=== PATIENT | female | born 1985 | race Caucasian/White ===

== ENCOUNTER 2023-07-12 08:32 | Emergency (ER) | payer MEDICAID ==
[~2023-07-12] VITALS: Ht 167.6 cm; Wt 82.0 kg
[2023-07-12 09:28] LABS: BASOPHILS % 0.5 % (0.0-2.0); EOSINOPHILS % 0.2 % (0.0-5.0); HEMATOCRIT. 33.8 % (36.0-48.0); HEMOGLOBIN. 11.4 g/dL (12.0-16.0); LYMPHOCYTES % 25.9 % (20.0-50.0); MEAN CORPUSCULAR HEMOGLOBIN 30.7 pg (28.0-32.0); MEAN CORPUSCULAR HGB CONC 33.8 g/dL (31.0-37.0); MEAN CORPUSCULAR VOLUME 90.8 fL (81.0-99.0); MEAN PLATELET VOLUME 9.4 fl (7.4-10.4); MONOCYTES % 9.7 % (2.0-8.0); NEUTROPHILS % 63.7 % (40.0-76.0); PLATELET 239 x1000/uL (130-400); RED BLOOD CELL COUNT 3.73 mill/uL (4.2-5.4); WHITE BLOOD COUNT 8.9 x1000/uL (4.5-11.0)
[2023-07-12 09:33] LABS: CHLORIDE 108 mEq/L (98-107); INDEX HEMOLYSI 1 (1-3); INDEX ICTERIC 1 (1-4); INDEX LIPEMIC 1 (1-3); POTASSIUM 3.2 mEq/L (3.5-5.1); SODIUM 140 mEq/L (136-145)
[2023-07-12 09:42] LABS: ALANINE AMINOTRANSFERASE 40 IU/L (13-61); ALBUMIN 4.1 g/dL (3.4-5.0); ASPARTATE AMINOTRANSFERASE 38 IU/L (15-37); BILIRUBIN TOTAL 0.4 mg/dL (0.1-1.0); CALCIUM 9.2 mg/dL (8.5-10.1); CARBON DIOXIDE 27 mEq/L (21-32); CREATININE 0.6 mg/dL (0.6-1.3); ETHANOL BLOOD < 10 mg/dL (-10); GLUCOSE 129 mg/dL (70-105); PROTEIN TOTAL 7.5 g/dL (6.0-8.3); UREA NITROGEN BLOOD 9 mg/dL (7-21)
[2023-07-12] MEDS ORDERED: LORAZEPAM 2MG/ML CPJ IM STA (10:35)
[2023-07-12] MEDS ORDERED: HALOPERIDOL LACTATE 5MG/ML VIAL IM ONE ×2 (10:45→16:15)
[2023-07-12] MEDS ORDERED: DIPHENHYDRAMINE 50MG/ML VIAL IM ONE (16:15)
[2023-07-12] MEDS ORDERED: LORAZEPAM 2MG/ML CPJ IM ONE (16:15)
[2023-07-12 18:45] VITALS: O2SAT 97
[2023-07-12] MEDS ORDERED: POTASSIUM CHLORIDE 20MEQ TABLET SR PO ONE (20:15)
[2023-07-12 21:22] LABS: HCG SCREEN NEGATIVE
[2023-07-12 21:44] LABS: CLARITY URINE CLOUDY (CLEAR); COLOR URINE DARK YELLOW (YELLOW); GLUCOSE URINE NEGATIVE (NEGATIVE); KETONES URINE 2+ (NEGATIVE); LEUKOCYTE ESTERASE URINE TRACE (NEGATIVE); NITRITE URINE NEGATIVE (NEGATIVE); OCCULT BLOOD URINE 3+ (NEGATIVE); PROTEIN URINE 1+ (NEGATIVE); SPECIFIC GRAVITY URINE 1.031 (1.005-1.030)
[2023-07-12 21:46] LABS: SQUAMOUS EPITHELIAL CELL URINE 1+ /lpf (RARE/1+)
[2023-07-12 21:54] LABS: *AMPHETAMINES SCREEN URINE NEGATIVE (NEGATIVE); *BARBITURATES SCREEN URINE NEGATIVE (NEGATIVE); *BENZODIAZEPINES SCREEN URINE NEGATIVE (NEGATIVE); *COCAINE SCREEN URINE NEGATIVE (NEGATIVE); CANNABINOID URINE SCREEN NEGATIVE (NEGATIVE); ECSTASY MDMA SCREEN URINE NEGATIVE (NEGATIVE); METHADONE URINE SCREEN NEGATIVE (NEGATIVE); OPIATES URINE SCREEN NEGATIVE (NEGATIVE)
[2023-07-12 21:58] LABS: PHENCYCLIDINE URINE SCREEN PRESUMTIVE POSITIVE (NEGATIVE)
[2023-07-12 22:07] LABS: BACTERIA URINE 2+; RBC URINE 15-25 /hpf (0-2)
[2023-07-12 22:08] LABS: WBC URINE 0-2 /hpf (0-2); YEAST URINE NONE SEEN
[2023-07-13] MEDS: OLANZAPINE 5MG TABLET ODT PO SCH ×2 (11:00→17:00)
[2023-07-13 16:10] LABS: CALCIUM 8.8 mg/dL (8.5-10.1); CARBON DIOXIDE 28 mEq/L (21-32); CHLORIDE 108 mEq/L (98-107); GLUCOSE 99 mg/dL (70-105); INDEX HEMOLYSI 1 (1-3); INDEX ICTERIC 1 (1-4); INDEX LIPEMIC 1 (1-3); POTASSIUM 3.6 mEq/L (3.5-5.1); SODIUM 138 mEq/L (136-145); UREA NITROGEN BLOOD 10 mg/dL (7-21)
[2023-07-13 16:13] LABS: CREATININE 0.5 mg/dL (0.6-1.3)
[2023-07-13 21:25] VITALS: BP 124/74; PULSE 90; RESP 14; TEMP 98
== END 2023-07-13 22:30 ==
LOC: EDBD 08:32 → ER 08:32
DX: F19.10 Other psychoactive substance abuse, uncomplicated (principal); Z20.822 Contact with and (suspected) exposure to COVID-19
CPT/HCPCS: 80053; 80305; 81003; 81025; 80320; 84703; 85025; 36415 ×2; 96372; 99285; 80048; 87426; J1200; J1630; J2060; Z7610; C9803; G0480